=== PATIENT | female | born 1960 | race American Indian/Alaskan Native ===

== ENCOUNTER 2016-09-06 12:10 | Emergency (ER) | payer MEDICAID ==
[2016-09-06 13:56] LABS: Bacteria,Urine 1+ /HPF (Negative); Bilirubin,Urine NEG (Negative); Blood,Urine NEG (Negative); Ketones,Urine TR mg/dL (Negative); Leukocyte Esterase,Urine NEG (Negative); Mucus,Urine FEW /HPF; Nitrite,Urine NEG (Negative); Protein,Urine <15 mg/dL mg/dL (Negative); Urobilinogen,Urine < 2.0 mg/dL (<2.0)
[2016-09-06] MEDS ORDERED: ZOFRAN ODT PO ONE (14:58)
[2016-09-06] MEDS ORDERED: NORCO 5/325 PO ONE (14:58)
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
[2016-09-06 15:38] LABS: Albumin 3.8 g/dL (3.9-5); Albumin/Globulin Ratio 1.2 %; Alkaline Phosphatase 84 units/L (35-129); Anion Gap 17 mmol/L; BUN/Creatinine Ratio 11.66; Bilirubin,Total 0.2 mg/dL (0.1-1.2); Blood Urea Nitrogen 7 mg/dL (7-17); Carbon Dioxide 26 mmol/L (22-30); Chloride 101.4 mmol/L (98-107); Glucose 90 mg/dL (65-100); Lipase 38 units/L (13-60); Potassium 4.3 mmol/L (3.6-5.0); Sodium 140 mmol/L (137-145); Total Protein 7.1 g/dL (6.3-8.2)
[2016-09-06 15:39] LABS: Alanine Aminotransferase < 5 units/L (7-56)
[2016-09-06 15:44] LABS: Basophils % (Auto) 0.5 % (0.0-1.8); Eosinophils % (Auto) 0.7 % (0.0-4.3); Hematocrit 43.4 % (30.3-42.9); Hemoglobin 14.4 gm/dl (10.1-14.3); Mean Corpuscular HGB Conc 33 % (30-34); Mean Corpuscular Hemoglobin 30 pg (28-32); Mean Corpuscular Volume 89 fl (79-97); Platelet Count 310 K/mm3 (140-440); Red Blood Count 4.86 M/mm3 (3.65-5.03); Red Cell Distribution Width 14.6 % (13.2-15.2); White Blood Count 7.2 K/mm3 (4.5-11.0)
[2016-09-06 16:15] LABS: INR 1.07 (0.87-1.13)
[2016-09-06 16:16] LABS: Partial Thromboplastin Time 33.2 Sec. (24.2-36.6)
[2016-09-06 21:15] VITALS: BP 118/74
== END 2016-09-06 20:00 | disposition home or self-care (01) ==
LOC: ED 12:10
DX: R10.33 Periumbilical pain (principal); E86.0 Dehydration; J45.909 Unspecified asthma, uncomplicated; J44.9 Chronic obstructive pulmonary disease, unspecified; F17.200 Nicotine dependence, unspecified, uncomplicated
CPT/HCPCS: 36415; 80053; 81001; 83690; 85025; 85610; 85730; 99284; Q0162

== ENCOUNTER 2017-01-18 17:08 | Emergency (ER) | payer MEDICAID ==
[2017-01-18 18:19] LABS: Basophils % (Auto) 0.3 % (0.0-1.8); Eosinophils % (Auto) 0.7 % (0.0-4.3); Hematocrit 46.4 % (30.3-42.9); Hemoglobin 15.2 gm/dl (10.1-14.3); Mean Corpuscular HGB Conc 33 % (30-34); Mean Corpuscular Hemoglobin 29 pg (28-32); Mean Corpuscular Volume 88 fl (79-97); Platelet Count 292 K/mm3 (140-440); Red Blood Count 5.27 M/mm3 (3.65-5.03); Red Cell Distribution Width 14.7 % (13.2-15.2); White Blood Count 7.9 K/mm3 (4.5-11.0)
[2017-01-18] MEDS ORDERED: ZOFRAN IM ONE (18:25)
[2017-01-18] MEDS ORDERED: MORPHINE IM ONE (18:25)
--- NOTE | 2017-01-18 18:31 | Emergency Department Report ---
ED General Adult HPI - General Chief complaint: Pain General Stated complaint: CHRONIC LEFT BODY PAIN Time Seen by Provider: 01/18/17 18:10 Source: patient, EMS Mode of arrival: Stretcher Limitations: No Limitations - History of Present Illness -: Gradual Location: back, left, upper extremity, lower extremity Radiation: back, neck, extremity Severity scale (0 -10): 6 Quality: stabbing Consistency: constant Worsens with: none Associated Symptoms: denies other symptoms Treatments Prior to Arrival: none - Related Data Previous Rx's Medication Instructions Recorded Last Taken Type traMADol [Ultram 50 MG tab] 50 mg PO Q6HR PRN #10 tablet 09/06/16 Unknown Rx oxyCODONE /ACETAMINOPHEN [Percocet 1 tab PO Q6HR PRN #10 tablet 01/18/17 Unknown Rx 5/325] Allergies Allergy/AdvReac Type Severity Reaction Status Date / Time ibuprofen Allergy Hives Verified 01/18/17 17:52 ED Review of Systems ROS: Stated complaint: CHRONIC LEFT BODY PAIN Other details as noted in HPI Comment: All other systems reviewed and negative ED Past Medical Hx - Past Medical History Hx Hypertension: Yes Hx CVA: Yes Hx Diabetes: Yes Hx Arthritis: Yes Hx Psychiatric Treatment: Yes ([facility]) Hx Asthma: Yes Hx COPD: Yes (chronic bronchitis) Additional medical history: sarcoidosis - Surgical History Additional Surgical History: hysterectomy for uterine cancer 2 years ago. colostomy - Social History Smoking Status: Former Smoker Substance Use Type: None - Medications Home Medications: Home Medications Medication Instructions Recorded Confirmed Last Taken Type traMADol [Ultram 50 MG tab] 50 mg PO Q6HR PRN #10 tablet 09/06/16 Unknown Rx oxyCODONE /ACETAMINOPHEN [Percocet 1 tab PO Q6HR PRN #10 tablet 01/18/17 Unknown Rx 5/325] ED Physical Exam - General Limitations: No Limitations General appearance: alert, in no apparent distress - Head Head exam: Present: atraumatic - Eye Eye exam: Present: normal appearance - Neck Neck exam: Present: normal inspection, full ROM. Absent: tenderness, meningismus - Respiratory Respiratory exam: Present: normal lung sounds bilaterally - Cardiovascular Cardiovascular Exam: Present: regular rate - GI/Abdominal GI/Abdominal exam: Present: soft. Absent: distended, tenderness, guarding, rebound, pulsatile mass - Extremities Exam Extremities exam: Present: normal inspection, full ROM, normal capillary refill. Absent: tenderness, calf tenderness - Back Exam Back exam: Present: normal inspection, full ROM - Neurological Exam Neurological exam: Present: alert, oriented X3, CN II-XII intact. Absent: motor sensory deficit - Skin Skin exam: Present: warm ED Course Vital Signs 01/18/17 01/18/17 01/18/17 17:53 19:01 19:02 Temperature 98.4 F Pulse Rate 68 Respiratory 18 16 16 Rate Blood Pressure 110/70 O2 Sat by Pulse 99 Oximetry ED Medical Decision Making - Lab Data Result diagrams: 01/18/17 17:57 01/18/17 17:58 - Medical Decision Making PATIENT RECEIVED MORPHINE FOR PAIN . SHE STATED THAT SHE FEEL MUCH BETTER. SHE WILL FOLLOW UP WITH HER FAMILY DOCTOR FOR PAIN CONTROL Critical care attestation.: If time is entered above; I have spent that time in minutes in the direct care of this critically ill patient, excluding procedure time. ED Disposition Clinical Impression: Generalized pain Disposition: DC-01 TO HOME OR SELFCARE Is pt being admited?: No Does the pt Need Aspirin: No Condition: Stable Prescriptions: oxyCODONE /ACETAMINOPHEN [Percocet 5/325] 1 tab PO Q6HR PRN #10 tablet PRN Reason: Pain Referrals: PRIMARY CARE, [Primary Care Provider] - 3-5 Days Time of Disposition: 19:31
[2017-01-18 18:35] LABS: Anion Gap 19 mmol/L; Blood Urea Nitrogen 9 mg/dL (7-17); Calcium 9.5 mg/dL (8.4-10.2); Carbon Dioxide 27 mmol/L (22-30); Chloride 99.3 mmol/L (98-107); Glucose 87 mg/dL (65-100); Sodium 141 mmol/L (137-145)
[2017-01-18] MEDS ORDERED: MORPHINE IV ONE (19:00)
[2017-01-18] MEDS ORDERED: ZOFRAN IV ONE (19:01)
[2017-01-18 20:55] VITALS: BP 167/89
== END 2017-01-18 20:56 | disposition home or self-care (01) ==
LOC: ED 17:08
DX: M54.9 Dorsalgia, unspecified (principal); M79.1 Myalgia; I10 Essential (primary) hypertension; E11.9 Type 2 diabetes mellitus without complications; M19.90 Unspecified osteoarthritis, unspecified site; J45.909 Unspecified asthma, uncomplicated; J44.9 Chronic obstructive pulmonary disease, unspecified; Z86.73 Personal history of transient ischemic attack (TIA), and cerebral infarction without residual deficits; Z87.891 Personal history of nicotine dependence; Z88.6 Allergy status to analgesic agent
CPT/HCPCS: 36415; 80048; 85025; 96374; 96375; 99284; J2270; J2405